=== PATIENT | male | born 1990 | race Caucasian/White ===

== ENCOUNTER 2019-04-06 18:30 | Emergency (ER) | payer OTHER ==
[~2019-04-06] VITALS: Ht 162.6 cm; Wt 63.5 kg
[~2019-04-06 18:30] MED LIST: ABILIFY10 MG PO; ADDERALL 30 MG30 MG PO; BACTRIM DS TAB1 EACH PO; CLONAZEPAM; CLONAZEPAM 0.50.5 M1 PO; CLONAZEPAM 1 MG1 M1 PO; CLONAZEPAM PO; DOXEPIN 50MG CA50 MG PO; FLOMAX PO; GABAPENTIN 100100 MG PO; GEODON40 MG PO; HYDROCODON-ACE1 EACH PO; IBUPROFEN 800800 M1 PO; IBUPROFEN 800800 MG PO; KLONOPIN0.5 MG PO; NOHOMEMEDICATIONS; NORCO 5-325 TA1 EACH PO; NORFLEX100 MG PO; ONDANSETRON HCL4 M2 PO; PERCOCET 5-3251 EACH PO; PROZAC 20 MG20 M1 PO; ROXICODONE5 M1 PO; SUBOXONE 8 MG-1 EAC3 SL; TRAZODONE 150150 M1 PO; VICOPROFEN 2001 EACH PO; VISTARIL 25 MG25 M1 PO; XANAX XR1 MG PO; ZOFRAN4 MG PO; [UNRECOGNIZED DRUG - OTHER]
[2019-04-06] MEDS ORDERED: AMITRIPTYLINE H25 M2 PO (20:03)
[2019-04-06 20:18] VITALS: BP 152/100
== END 2019-04-06 20:19 | disposition home or self-care (01) ==
LOC: ER 18:30
DX: M79.672 Pain in left foot (principal); M79.671 Pain in right foot; F17.210 Nicotine dependence, cigarettes, uncomplicated; Z88.0 Allergy status to penicillin; Z88.5 Allergy status to narcotic agent; Z88.8 Allergy status to other drugs, medicaments and biological substances; Z23 Encounter for immunization

== ENCOUNTER 2019-06-26 06:42 | Emergency (ER) | payer OTHER ==
[~2019-06-26] VITALS: Ht 162.6 cm; Wt 56.7 kg
[~2019-06-26 06:42] MED LIST changes: +AMITRIPTYLINE H25 M2 PO
[2019-06-26] MEDS ORDERED: PEPCID40 MG PO (06:58)
[2019-06-26 07:58] VITALS: BP 126/76
--- NOTE | 2019-06-26 10:58 | EKG ---
[address] [address] ELECTROCARDIOGRAM REPORT Name: WAYNE NICHOLSON Room #: [facility]#: [id number] Admission: 06/26/19 Attend Phys: Discharge: 06/26/19 Date of : 89 Report #: [id number] THIS REPORT FOR: //name// [facility] ED Test Date: 2019-06-26 Test Time: 06:47:39 Pat Name: WAYNE NICHOLSON Department: Room: Gender: African Studies Professor: KATELIN : 1990 Requested By: Torey Lynch Order Number: [id number] MD: Basil Arce Measurements Intervals [place] Rate: 81 P: 57 MS: 113 QRS: 37 QRSD: 88 T: 50 QT: 385 QTc: 447 Interpretive Statements Sinus rhythm Borderline short MS interval No previous ECG available for comparison Electronically Signed On 06-26-2019 10:58:36 CDT by Basil Arce [email or web address] <ELECTRONICALLY SIGNED> By: Basil Arce MD 06/26/19 [id number] Basil Arce MD /EPI
== END 2019-06-26 07:59 | disposition home or self-care (01) ==
LOC: ER 06:42
DX: K21.9 Gastro-esophageal reflux disease without esophagitis (principal); F17.210 Nicotine dependence, cigarettes, uncomplicated; Z88.6 Allergy status to analgesic agent; Z88.1 Allergy status to other antibiotic agents; Z88.0 Allergy status to penicillin